=== PATIENT | male | born 1975 | race Caucasian/White ===

== ENCOUNTER 2017-10-12 20:32 | Emergency (ER) | payer SELFPAY ==
[~2017-10-12] VITALS: Ht 165.1 cm; Wt 59.0 kg
[2017-10-13] MEDS ORDERED: TETANUS, DIPHTHERIA, PERTUSSIS VAC/PF 0.5ML (>7YR OLD) IM ONE (01:30)
[2017-10-13 03:43] VITALS: BP 130/81
== END 2017-10-13 03:46 | disposition home or self-care (01) ==
LOC: ER 20:34
DX: S49.82XA Other specified injuries of left shoulder and upper arm, initial encounter (principal); S29.8XXA Other specified injuries of thorax, initial encounter; Y04.0XXA Assault by unarmed brawl or fight, initial encounter; Y92.018 Other place in single-family (private) house as the place of occurrence of the external cause
CPT/HCPCS: 71045; 73060; 90471; 90715; 99284